=== PATIENT | male | born 1965 | race Caucasian/White ===

== ENCOUNTER 2017-07-15 02:43 | Observation (INO) | payer BC ==
[2017-07-15 02:56] VITALS: BP 184/91; PULSE 76; RESP 18; TEMP 97.4; O2SAT 96
[2017-07-15] MEDS ORDERED: ASPIRIN 81 MG CHEW TAB CHEW ONE (03:15)
[2017-07-15] MEDS ORDERED: NITROGLYCERIN 0.4 MG SL 25 TABS/BTL SL ONE (03:15)
--- NOTE | 2017-07-15 03:38 | RADRPT ---
EXAM DATE: 07/15/2017 3:31 AM EDT AGE/SEX: 52 years / Male INDICATIONS: Chest pain to anterior chest wall. CLINICAL DATA: This is the patient's initial encounter. Patient reports that signs and symptoms have been present for 1 day and indicates a pain score of 6/10. MEDICAL/SURGICAL HISTORY: None. None. COMPARISON: No prior [place] exams available for comparison. FINDINGS: A single AP view of the chest demonstrates the lungs to be symmetrically aerated without evidence of mass, infiltrate or effusion. The cardiomediastinal contours are unremarkable. Osseous structures a re intact. CONCLUSION: No acute intrathoracic disease. Electronically signed by: Jay Linder MD 07/15/2017 3:37 AM EDT
[2017-07-15 03:43] LABS: AUTOMATED NEUTROPHIL # 5.2 TH/MM3 (1.8-7.7); BASOPHIL # 0.1 TH/MM3 (0-0.2); BASOPHIL % 1.5 % (0.0-2.0); EOSINOPHIL # 0.2 TH/MM3 (0-0.4); EOSINOPHIL % 2.6 % (0.0-4.0); HEMATOCRIT 42.7 % (39.0-51.0); HEMOGLOBIN 15.5 GM/DL (13.0-17.0); LYMPH % 27.4 % (9.0-44.0); LYMPHOCYTE # 2.4 TH/MM3 (1.0-4.8); MEAN CELL VOLUME 89.1 FL (80.0-100.0); MEAN CORPUSCULAR HEMOGLOBIN 32.3 PG (27.0-34.0); MEAN CORPUSCULAR HGB CONC 36.3 % (32.0-36.0); MEAN PLATELET VOLUME 7.9 FL (7.0-11.0); MONO % 8.6 % (0.0-8.0); MONOCYTE # 0.7 TH/MM3 (0-0.9); NEUT % 59.9 % (16.0-70.0); PLATELET COUNT 232 TH/MM3 (150-450); RED BLOOD COUNT 4.79 MIL/MM3 (4.50-5.90); RED CELL DISTRIBUTION WIDTH 13.1 % (11.6-17.2); WHITE BLOOD COUNT 8.7 TH/MM3 (4.0-11.0)
[2017-07-15 04:11] LABS: ALBUMIN 3.9 GM/DL (3.4-5.0); ALKALINE PHOSPHATASE 93 U/L (45-117); ALT (GPT) 31 U/L (12-78); AST (GOT) 18 U/L (15-37); BICARBONATE 23.8 MEQ/L (21.0-32.0); BLOOD UREA NITROGEN 12 MG/DL (7-18); CALCIUM 8.6 MG/DL (8.5-10.1); CHLORIDE 105 MEQ/L (98-107); GLOMERULAR FILTRATION RATE 78 ML/MIN (>89); GLUCOSE,RANDOM 100 MG/DL (74-106); MAGNESIUM 2.4 MG/DL (1.5-2.5); SODIUM (NA) 140 MEQ/L (136-145); TOTAL BILIRUBIN ADULT 0.4 MG/DL (0.2-1.0); TOTAL PROTEIN 7.8 GM/DL (6.4-8.2); TROPONIN I LESS THAN 0.02 NG/ML (0.02-0.05)
[2017-07-15] MEDS ORDERED: PANTOPRAZOLE SODIUM 40 MG VIAL IV PUSH ONE (04:30)
[2017-07-15] MEDS ORDERED: MORPHINE SULFATE 2 MG/ML SYRINGE IV PUSH ONE (04:45)
[2017-07-15] MEDS ORDERED: METOCLOPRAMIDE HCL 10 MG/2 ML VIAL IV PUSH ONE (04:45)
--- NOTE | 2017-07-15 04:47 | PD ---
HPI Chief Complaint: Chest Pain Time Seen by Provider: 03:11 Travel History International Travel<30 days: No Contact w/Intl Traveler<30days: No Traveled to known affect area: No History of Present Illness HPI The patient is a 52 year old male who presents to the [facility] emergency department with a history of left-sided lower chest pain that he reports began at 5 PM yesterday. He reports that he was resting when it began. He reports that it is worse with movement or lying flat. He reports that it is worse with taking a deep breath. He reports that it is sharp in character. He denies having any shortness of breath, nausea or vomiting, diaphoresis, or radiation of the pain with the symptoms. He denies having any recent injury or trauma to the area. He denies having any indigestion, heartburn, reflux problems recently. He does have a history of hypertension. He denies any prior history of hyperlipidemia, diabetes mellitus, or smoking. He reports that he has had an abnormality on his lung in the evaluated by bronchoscopy. Initially they told him that it may be sarcoidosis, however this diagnosis was rescinded later. He reports that he has had a stress test done a couple of years ago that was unremarkable. He denies having any lower extremity edema, calf pain, or erythema. He denies having any prior history of coronary artery disease, DVT or PE. On review of systems otherwise, the patient denies having any known cough or congestion, neck pain, abdominal pain, diarrhea, urinary symptoms, or neurologic symptoms. PFSH Past Medical History Narrative Medical The patient's past medical history is significant for kidney stones, hypertension Past Surgical History Narrative Surgical The patient's past surgical history is significant for bronchoscopy. Surgical History: No Previous Surgery Social History Alcohol Use: No Tobacco Use: No Substance Use: No Allergies-Medications (Allergen,Severity, Reaction): Coded Allergies: No Known Allergies (Unverified , 07/15/17) Reported Meds & Prescriptions Reported Meds & Active Scripts Active Reported Diltiazem CD 24 HR 240 Mg Caper 240 Mg PO DAILY Narrative Medication Diltiazem 240 mg p.o. daily. Review of Systems Except as stated in HPI: all other systems reviewed are Neg General / Constitutional: No: Fever Eyes: No: Visual changes HENT: No: Headaches, Rhinorrhea, Congestion Cardiovascular: Positive: Chest Pain or Discomfort, No: Diaphoresis, Dyspnea on exertion Respiratory: No: Cough, Shortness of Breath Gastrointestinal: No: Nausea, Vomiting, Diarrhea, Abdominal Pain Genitourinary: No: Dysuria Musculoskeletal: No: Pain Skin: No Rash Neurologic: No: Weakness, Focal Abnormalities, Change in Mentation, Slurred Speech, Sensory Disturbance Psychiatric: No: Depression Endocrine: No: Polydipsia Hematologic/Lymphatic: No: Easy Bruising Physical Exam Narrative General: The patient is a well-developed well-nourished male in no acute distress. Head and Neck exam: Head is normocephalic atraumatic. Eyes: EOMI, pupils are equal round and reactive to light. Nose: Midline septum with pink mucous membranes Mouth: Dentition unremarkable. Moist mucus membranes. Posterior oropharynx is not erythematous. No tonsillar hypertrophy. Uvula midline. Airway patent. Neck: No palpable lymphadenopathy. No nuchal rigidity. No thyromegaly. Cardiovascular: Regular rate and rhythm without murmurs, gallops, or rubs. No pulse deficit to the extremities on simultaneous auscultation and palpation of his radial artery. No chest wall tenderness on palpation. Lungs: Clear to auscultation bilaterally. No wheezes, rhonchi, or rales. Abdomen: Soft, with reported tenderness on palpation of the left upper quadrant of the abdomen, no other tenderness on palpation of the other quadrants of the. No guarding, rebound, or rigidity. Normal bowel sounds are audible. No tenderness on palpation of McBurney's point. Negative Gambino sign. Extremities: No clubbing, cyanosis, or edema. 2+ pulses in all 4 extremities. No calf tenderness on palpation. Back: No spinous process tenderness to palpation. No costovertebral angle tenderness to palpation. Neurologic Exam: Grossly nonfocal. Skin Exam: No rash noted. Intact skin that is warm and dry. Data Data Last Documented VS Vital Signs Date Time Temp Pulse Resp B/P (MAP) Pulse Ox O2 Delivery O2 Flow Rate FiO2 07/15/17 02:56 97.4 76 18 184/91 (122) 96 Orders Orders Complete Blood Count With Diff (07/15/17 03:11) Comprehensive Metabolic Panel (07/15/17 03:11) Creatine Kinase (Cpk) (07/15/17 03:11) Ckmb (Isoenzyme) Profile (07/15/17 03:11) Troponin I (07/15/17 03:11) B-Type Natriuretic Peptide (07/15/17 03:11) Prothrombin Time / Inr (Pt) (07/15/17 03:11) Act Partial Throm Time (Ptt) (07/15/17 03:11) Lipase (07/15/17 03:11) Magnesium (Mg) (07/15/17 03:11) Chest, Single Ap (07/15/17 03:11) Iv Access Insert/Monitor (07/15/17 03:11) Ecg Monitoring (07/15/17 03:11) Oximetry (07/15/17 03:11) Aspirin Chew (Aspirin Chew) (07/15/17 03:15) Nitroglycerin Sl (Nitrostat Sl) (07/15/17 03:15) CKMB (07/15/17 03:25) CKMB% (07/15/17 03:25) Pantoprazole Inj (Protonix Inj) (07/15/17 04:30) Ct Abd/Pel W Iv Contrast(Rout) (07/15/17 04:28) Morphine Inj (Morphine Inj) (07/15/17 04:45) Metoclopramide Inj (Reglan Inj) (07/15/17 04:45) Morphine Inj (Morphine Inj) (07/15/17 05:00) Iohexol 350 Inj (Omnipaque 350 Inj) (07/15/17 05:01) Urinalysis - C+S If Indicated (07/15/17 05:33) Admit Order (Ed Use Only) (07/15/17 06:08) Labs Laboratory Tests Test 07/15/17 03:25 White Blood Count 8.7 TH/MM3 Red Blood Count 4.79 MIL/MM3 Hemoglobin 15.5 GM/DL Hematocrit 42.7 % Mean Corpuscular Volume 89.1 FL Mean Corpuscular Hemoglobin 32.3 PG Mean Corpuscular Hemoglobin Concent 36.3 % Red Cell Distribution Width 13.1 % Platelet Count 232 TH/MM3 Mean Platelet Volume 7.9 FL Neutrophils (%) (Auto) 59.9 % Lymphocytes (%) (Auto) 27.4 % Monocytes (%) (Auto) 8.6 % Eosinophils (%) (Auto) 2.6 % Basophils (%) (Auto) 1.5 % Neutrophils # (Auto) 5.2 TH/MM3 Lymphocytes # (Auto) 2.4 TH/MM3 Monocytes # (Auto) 0.7 TH/MM3 Eosinophils # (Auto) 0.2 TH/MM3 Basophils # (Auto) 0.1 TH/MM3 CBC Comment AUTO DIFF Differential Comment AUTO DIFF CONFIRMED Platelet Estimate NORMAL Platelet Morphology Comment NORMAL Red Cell Morphology Comment NORMAL Prothrombin Time 10.0 SEC Prothromb Time International Ratio 1.0 RATIO Activated Partial Thromboplast Time 29.6 SEC Blood Urea Nitrogen 12 MG/DL Creatinine 1.00 MG/DL Random Glucose 100 MG/DL Total Protein 7.8 GM/DL Albumin 3.9 GM/DL Calcium Level 8.6 MG/DL Magnesium Level 2.4 MG/DL Alkaline Phosphatase 93 U/L Aspartate Amino Transf (AST/SGOT) 18 U/L Alanine Aminotransferase (ALT/SGPT) 31 U/L Total Bilirubin 0.4 MG/DL Sodium Level 140 MEQ/L Potassium Level 4.1 MEQ/L Chloride Level 105 MEQ/L Carbon Dioxide Level 23.8 MEQ/L Anion Gap 11 MEQ/L Estimat Glomerular Filtration Rate 78 ML/MIN Total Creatine Kinase 104 U/L Creatine Kinase MB LESS THAN 0.5 NG/ML Troponin I LESS THAN 0.02 NG/ML B-Type Natriuretic Peptide 11 PG/ML Lipase 164 U/L MDM Medical Decision Making Medical Screen Exam Complete: Yes Emergency Medical Condition: Yes Medical Record Reviewed: Yes Differential Diagnosis Peptic ulcer disease, versus gastritis, versus kidney stone, versus muscle strain, versus acute coronary syndrome Narrative Course During the course of the patient's emergency department visit, the patient's history, examination, and differential diagnosis were reviewed with the patient. The patient was placed on a gambling monitor with oximetry and frequent blood pressure monitoring. The patient had IV access obtained and blood work sent for analysis. The patient had a EKG done on arrival. The patient's EKG reveals a sinus rhythm heart rate of 74 with an occasional ventricular premature complex, QRS duration 109 ms, QTC 423 ms, no acute ST segment elevation is noted. T waves are inverted in V1. The patient was initially provided aspirin 324 mg p.o. 1, sublingual nitroglycerin 1, Protonix 40 mg IV. The patient's laboratory studies were reviewed and remarkable for CBC & BMP Diagram 07/15/17 03:25 Total Protein 7.8, Albumin 3.9, Calcium Level 8.6, Magnesium Level 2.4, Alkaline Phosphatase 93, Aspartate Amino Transf (AST/SGOT) 18, Alanine Aminotransferase (ALT/SGPT) 31, Total Bilirubin 0.4. Initial set of cardiac enzymes are within normal limits. Radiology studies were reviewed and remarkable for Last Impressions Abdomen/Pelvis CT 07/15/17 7403 Signed Impressions: CONCLUSION: 1. A few tiny stones in the gallbladder. No biliary tract obstruction. 2. 2 mm nonobstructing stone midpole left kidney. 3. Old cortical scarring of the left kidney. 4. Bibasilar atelectasis and compensated cardiomegaly. Chest X-Ray 07/15/17 9950 Signed Impressions: CONCLUSION: No acute intrathoracic disease. The patient is agreeable with the plan to proceed with admission to the chest pain center for rule out serial cardiac enzyme protocol. The patient's results were discussed with the patient, including the plan of care. I explained that further testing and/ or monitoring is indicated based on the patient's history, examination, and/ or laboratory findings. Therefore, I recommended admission for additional evaluation. The patient expressed understanding and was agreeable with this plan. The patient was admitted to the hospital in stable condition and sent to a bed under the care of the chest pain center. Diagnosis Primary Impression: Chest pain, rule out acute myocardial infarction Admitting Information Admitting Physician Requests: Bela Joe MD Jul 15, 2017 04:47
[2017-07-15] MEDS ORDERED: MORPHINE SULFATE 4 MG/ML INJ IV PUSH ONE (05:00)
[2017-07-15] MEDS ORDERED: IOHEXOL 350 MG/ML 10 ML VIAL (for RAD DIAG) IVCONTRAST ONE (05:01)
--- NOTE | 2017-07-15 05:16 | RADRPT ---
EXAM DATE: 07/15/2017 5:02 AM EDT AGE/SEX: 52 years / Male INDICATIONS: Left upper qaudrant pain. CLINICAL DATA: This is the patient's initial encounter. Patient reports that signs and symptoms have been present for 1 day and indicates a pain score of 10/10. MEDICAL/SURGICAL HISTORY: . . ORAL CONTRAST: Patient refused oral contrast. RADIATION DOSE: 10.17 CTDI (mGy) COMPARISON: No prior [place] exams available for comparison. TECHNIQUE: Multiple contiguous axial images were obtained through the abdomen and pelvis following b olus infusion of 93 ml Omnipaque 350 (iohexol) nonionic water-soluble contrast as a single exam dos e. Patient refused oral contrast. Using automated exposure control and adjustment of the mA and/or k V according to patient size, the radiation dose was kept as low as reasonably achievable to obtain op timal diagnostic quality images. FINDINGS: Lower Lungs: Mild bibasilar atelectasis. Cardiomegaly. Liver: The liver has a homogeneous density without space-occupying lesion. There is no dilation of th e biliary tree. Couple of tiny stones in the gallbladder. No inflammatory changes. Spleen: Homogeneous density without enlargement. Pancreas: Unremarkable without mass or calcification. Kidneys: Normal in size and shape. No evidence of mass or hydronephrosis. Tiny 2 mm nonobstructing s tone midpole left kidney. There is also some cortical scarring of the left kidney. The ureters are no ndilated. Adrenal Glands: Unremarkable. Aorta: The aorta and proximal iliac vessels are grossly unremarkable without aneurysmal dilation. Bowel/Mesentery: The bowel loops are grossly unremarkable. The cecum and sigmoid colon have a normal configuration. The appendix is unremarkable. No inflammatory changes. Stool throughout the colon. Abdominal Wall: Intact. Retroperitoneum: No evidence of adenopathy in the retrocrural, para-aortic, or deep pelvic regions. A few nonspecific para-aortic lymph nodes are demonstrated. Bladder: Contours are smooth. Reproductive Organs: No abnormal masses or calcifications seen. Inguinal: The inguinal region is unremarkable without evidence of adenopathy. Bony Structures: Mild degenerative changes. CONCLUSION: 1. A few tiny stones in the gallbladder. No biliary tract obstruction. 2. 2 mm nonobstructing stone midpole left kidney. 3. Old cortical scarring of the left kidney. 4. Bibasilar atelectasis and compensated cardiomegaly. Electronically signed by: Jay Linder MD 07/15/2017 5:14 AM EDT
[2017-07-15] MEDS ORDERED: ACETAMINOPHEN 500 MG CPLT PO PRN (07:00)
[2017-07-15] MEDS ORDERED: SODIUM CHLORIDE 0.9% FLUSH 10 ML FLUSH IV FLUSH PRN (07:00)
[2017-07-15 08:09] VITALS: BP 151/91; PULSE 73; RESP 20; TEMP 97.4; O2SAT 96
[2017-07-15 08:27] LABS: TROPONIN I LESS THAN 0.02 NG/ML (0.02-0.05)
[2017-07-15] MEDS ORDERED: SODIUM CHLORIDE 0.9% FLUSH 10 ML FLUSH IV FLUSH SCH (09:00)
[2017-07-15] MEDS ORDERED: FAMOTIDINE 20 MG TAB PO SCH (09:00)
[2017-07-15 10:22] LABS: TROPONIN I LESS THAN 0.02 NG/ML (0.02-0.05)
[2017-07-15] MEDS ORDERED: amLODIPine BESYLATE 5 MG TAB PO ONE (11:00)
--- NOTE | 2017-07-15 11:06 | HHI.HP ---
[facility] Primary Care Physician Juanpablo Quezada M.D. Chief Complaint Chest pain History of Present Illness This is a 52-year-old male with history of hypertension the presents to ED via private vehicle with a complaint of developing a left-sided chest discomfort that began around 5 PM yesterday afternoon. He was at rest when it began. Discomfort will last a few minutes but would recur. Found that changing positions would exacerbate the pain. Denies associated shortness breath, nausea , diaphoresis. Denies history of CAD. States he had a stress test several years ago that was okay. Review of Systems General: Patient denies fevers, chills, and recent travel. HEENT: Patient denies headache, sore throat, difficulty swallowing. Cardiovascular: Has the chest discomfort as mentioned above. Denies sensation of heart beating rapidly or irregularly. No syncope. Denies diaphoresis. Respiratory: Denies shortness of breath or inspirational chest discomfort. Denies coughing wheezing or hemoptysis. GI: Patient denies nausea, vomiting, diarrhea, abdominal pain, bloody stools. Musculoskeletal: Patient denies joint pain or edema. Denies calf pain or edema. Neurovascular: Patient denies numbness, tingling, weakness in extremities. Denies headache. Endocrine: Denies polyuria and polydipsia. Hematologic: Denies easy bruising. Skin: Denies rash or itching. Past Family Social History Allergies: Coded Allergies: No Known Allergies (Unverified , 07/15/17) Past Medical History Hypertension. Kidney stones. Denies hyperlipidemia, diabetes, and known CAD. Past Surgical History Bronchoscopy. Reported Medications Diltiazem. Active Ordered Medications Current Medications Medications (Trade) Dose Ordered Sig/Malick Route Start Time Stop Time Status Last Admin (NS Flush) 2 ml UNSCH PRN IV FLUSH 07/15/17 07:00 (NS Flush) 2 ml BID IV FLUSH 07/15/17 09:00 07/15/17 09:17 (Tylenol) 500 mg Q4H PRN PO 07/15/17 07:00 (Pepcid) 20 mg BID PO 07/15/17 09:00 07/15/17 09:17 Family History Denies family history of CAD. Social History Denies tobacco abuse. Denies alcohol or illicit drug use. Physical Exam Vital Signs Vital Signs Date Time Temp Pulse Resp B/P (MAP) Pulse Ox O2 Delivery O2 Flow Rate FiO2 07/15/17 08:09 97.4 73 20 151/91 (111) 96 07/15/17 02:56 97.4 76 18 184/91 (122) 96 Physical Exam GENERAL: This is a well-nourished, well-developed patient, in no apparent distress. Patient speaks in clear complete sentences. Patient is pleasant. HEENT: Head is atraumatic and normocephalic. Neck is supple without lymphadenopathy and trachea is midline. No JVD or carotid bruits. CARDIOVASCULAR: Regular rate and rhythm without murmurs, gallops, or rubs. RESPIRATORY: Clear to auscultation. Breath sounds equal bilaterally. No wheezes , rales, or rhonchi. Chest wall is nontender. No use of accessory muscles. GASTROINTESTINAL: Abdomen is nontender, nondistended. Abdomen soft. No obvious pulsatile mass or bruit. No CVA tenderness. Strong femoral pulses bilaterally. Normal bowel sounds in all quadrants. MUSCULOSKELETAL: Patient is moving upper and lower extremities freely. No calf tenderness or edema, no Homans sign. Strong pulses in upper and lower extremities. NEUROLOGICAL: Patient is alert and oriented. Cranial nerves 2-12 are grossly intact. No focal deficits and speech is clear. SKIN: No rash and turgor is normal. Laboratory Laboratory Tests Test 07/15/17 03:25 07/15/17 07:40 07/15/17 09:36 White Blood Count 8.7 Red Blood Count 4.79 Hemoglobin 15.5 Hematocrit 42.7 Mean Corpuscular Volume 89.1 Mean Corpuscular Hemoglobin 32.3 Mean Corpuscular Hemoglobin Concent 36.3 Red Cell Distribution Width 13.1 Platelet Count 232 Mean Platelet Volume 7.9 Neutrophils (%) (Auto) 59.9 Lymphocytes (%) (Auto) 27.4 Monocytes (%) (Auto) 8.6 Eosinophils (%) (Auto) 2.6 Basophils (%) (Auto) 1.5 Neutrophils # (Auto) 5.2 Lymphocytes # (Auto) 2.4 Monocytes # (Auto) 0.7 Eosinophils # (Auto) 0.2 Basophils # (Auto) 0.1 CBC Comment AUTO DIFF Differential Comment AUTO DIFF CONFIRMED Platelet Estimate NORMAL Platelet Morphology Comment NORMAL Red Cell Morphology Comment NORMAL Prothrombin Time 10.0 Prothromb Time International Ratio 1.0 Activated Partial Thromboplast Time 29.6 Blood Urea Nitrogen 12 Creatinine 1.00 Random Glucose 100 Total Protein 7.8 Albumin 3.9 Calcium Level 8.6 Magnesium Level 2.4 Alkaline Phosphatase 93 Aspartate Amino Transf (AST/SGOT) 18 Alanine Aminotransferase (ALT/SGPT) 31 Total Bilirubin 0.4 Sodium Level 140 Potassium Level 4.1 Chloride Level 105 Carbon Dioxide Level 23.8 Anion Gap 11 Estimat Glomerular Filtration Rate 78 Total Creatine Kinase 104 75 79 Creatine Kinase MB LESS THAN 0.5 Troponin I LESS THAN 0.02 LESS THAN 0.02 LESS THAN 0.02 B-Type Natriuretic Peptide 11 Lipase 164 Result Diagram: 07/15/175 07/15/17324 Imaging Last 48 hours Impressions Abdomen/Pelvis CT 07/15/17 8060 Signed Impressions: CONCLUSION: 1. A few tiny stones in the gallbladder. No biliary tract obstruction. 2. 2 mm nonobstructing stone midpole left kidney. 3. Old cortical scarring of the left kidney. 4. Bibasilar atelectasis and compensated cardiomegaly. Chest X-Ray 07/15/17310 Signed Impressions: CONCLUSION: No acute intrathoracic disease. Course EKGs are sinus rhythm without significant ST segment depressions or elevations. Caprini VTE Risk Assessment Caprini VTE Risk Assessment: No/Low Risk (score <= 1) Caprini Risk Assessment Model Point Value = 1 Point Value = 2 Point Value = 3 Point Value = 5 Age 41-60 Minor surgery BMI > 25 kg/m2 Swollen legs Varicose veins or History of unexplained or recurrent spontaneous Oral contraceptives or hormone replacement Sepsis (< 1 month) Serious lung disease, including pneumonia (< 1 month) Abnormal pulmonary function Acute myocardial infarction Congestive heart failure (< 1 month) History of inflammatory bowel disease Medical patient at bed rest Age 61-74 Arthroscopic surgery Major open surgery (> 45 min) Laparoscopic surgery (> 45 min) Malignancy Confined to bed (> 72 hours) Immobilizing plaster cast Central venous access Age >= 75 History of VTE Family history of VTE Factor V Leiden Prothrombin [id number] Lupus anticoagulant Anticardiolipin antibodies Elevated serum homocysteine Heparin-induced thrombocytopenia Other congenital or acquired thrombophilia Stroke (< 1 month) Elective arthroplasty Hip, pelvis, or leg fracture Acute spinal cord injury (< 1 month) Prophylaxis Regimen Total Risk Factor Score Risk Level Prophylaxis Regimen 0-1 Low Early ambulation 2 Moderate Order ONE of the following: *Sequential Compression Device (SCD) *Heparin 5000 units SQ BID 3-4 Higher Order ONE of the following medications: *Heparin 5000 units SQ TID *Enoxaparin/Lovenox 40 mg SQ daily (WT < 150 kg, CrCl > 30 mL/min) *Enoxaparin/Lovenox 30 mg SQ daily (WT < 150 kg, CrCl > 10-29 mL/min) *Enoxaparin/Lovenox 30 mg SQ BID (WT < 150 kg, CrCl > 30 mL/min) AND/OR *Sequential Compression Device (SCD) 5 or more Highest Order ONE of the following medications: *Heparin 5000 units SQ TID (Preferred with Epidurals) *Enoxaparin/Lovenox 40 mg SQ daily (WT < 150 kg, CrCl > 30 mL/min) *Enoxaparin/Lovenox 30 mg SQ daily (WT < 150 kg, CrCl > 10-29 mL/min) *Enoxaparin/Lovenox 30 mg SQ BID (WT < 150 kg, CrCl > 30 mL/min) AND *Sequential Compression Device (SCD) Assessment and Plan Assessment and Plan * Chest pain: Patient has had serial cardiac enzymes and EKGs for ruling out purposes. He was seen by Dr. Arevalo of cardiology in the chest pain center. He will undergo a Claudio protocol ETT. He would be discharged home if the stress test is nonischemic with instructions to follow-up with PCP. Return to ED for interval issues. * Hypertension: Resume medication. Patient is stable at this time. He is agreeable to this plan. Duran Rodríguez Jul 15, 2017 11:06
--- NOTE | 2017-07-15 12:57 | TR ---
Date Performed: 07/15/2017 Time Performed: 11:36:06 DOCTOR: Elvira Arevalo DRUG LIST: CLINICAL HISTORY: REASON FOR TEST: REASON FOR ENDING: OBSERVATION: CONCLUSION: ITZEL PROTOCOL. NO CP. TEST STOPPED AFTER EXCEEDING GOAL HR SECONDARY TO SOB AND LEG FATIGUE. THERE WERE FRWEQUENT PVCS WITH EPISODES OF BIGEMINY.Maximum UD=443 % Max HR Achieved=86.0% Maximum BN=764/90 Total Exercise Time=7:33 COMMENTS: No ischemia, PVC's and bigeminy noted
[2017-07-15] MEDS ORDERED: DILT240C44 PO (12:59)
--- NOTE | 2017-07-15 13:00 | HHI.DCPOC ---
Discharge Care Plan Diagnosis: (1) Chest pain (2) Hypertension Goals to Promote Your Health * To prevent worsening of your condition and complications * To maintain your health at the optimal level Directions to Meet Your Goals Take your medications as prescribed Follow your dietary instruction Follow activity as directed Keep your appointments as scheduled Take your immunizations and boosters as scheduled If your symptoms worsen call your PCP, if no PCP go to Urgent Care Center or Emergency Room Smoking is Dangerous to Your Health. Avoid second hand smoke Call the 24-hour hour crisis hotline for domestic abuse at Duran Rodríguez Jul 15, 2017 13:00
--- NOTE | 2017-07-15 17:27 | EKG ---
Date Performed: 07/15/2017 Time Performed: 10:43:25 PTAGE: 52 years EKG: Sinus rhythm MODERATE INTRAVENTRICULAR CONDUCTION DELAY BORDERLINE ECG Since PREVIOUS TRACING , no significant change noted DOCTOR: Elvira Arevalo Interpretating Date/Time 07/15/2017 17:25:19
--- NOTE | 2017-07-15 17:27 | EKG ---
Date Performed: 07/15/2017 Time Performed: 07:50:17 PTAGE: 52 years EKG: Sinus rhythm MODERATE INTRAVENTRICULAR CONDUCTION DELAY BORDERLINE ECG Since PREVIOUS TRACING , no significant change noted DOCTOR: Elvira Arevalo Interpretating Date/Time 07/15/2017 17:25:37
--- NOTE | 2017-07-15 17:28 | EKG ---
Date Performed: 07/15/2017 Time Performed: 04:00:11 PTAGE: 52 years EKG: Sinus rhythm WITH OCCASIONAL VENTRICULAR PREMATURE COMPLEXES BORDERLINE ECG NO PREVIOUS TRACING DOCTOR: Elvira Arevalo Interpretating Date/Time 07/15/2017 17:26:14
== END 2017-07-15 16:58 | disposition home or self-care (01) ==
LOC: NEPC 02:43 → NEDA 06:09 → NEPHCDU 07:45
PROVIDERS: ADMIT Internal Medicine Cardiovascular Disease; ATTEND Internal Medicine Cardiovascular Disease
DX: R07.9 Chest pain, unspecified (principal); I10 Essential (primary) hypertension; Z87.442 Personal history of urinary calculi; I49.3 Ventricular premature depolarization; J98.11 Atelectasis; R94.31 Abnormal electrocardiogram [ECG] [EKG]
CPT/HCPCS: 71045; 74177; 80053; 82550; 82552; 83690; 83735; 83880; 84484; 85025; 85610; 85730; 93005; 93017; 96374; 96375; 99285; C9113; G0378; J2270; J2765; Q9967